=== PATIENT | female | born 1995 | race African-American/Black ===

== ENCOUNTER 2017-06-24 04:31 | Inpatient (IN) | payer OTHER ==
[2017-06-24] VITALS (23 sets, daily range): BP systolic 101–126; BP diastolic 64–112; PULSE 82–138; RESP 16–20; TEMP 98.9
[2017-06-24] MEDS ORDERED: OXYTOCIN 30 UNITS-500ML PREMIX 500 ML IV ONE (05:15)
[2017-06-24] MEDS ORDERED: MINERAL OIL 10 ML VIAL TOPICAL PRN (05:15)
[2017-06-24] MEDS ORDERED: LACTATED RINGER'S 1000 ML INJ 1,000 ML IV SCH (05:15)
[2017-06-24] MEDS ORDERED: LIDOCAINE HCL 1% 50 ML VIAL INFIL PRN (05:15)
[2017-06-24] MEDS ORDERED: PENICILLIN G POTASSIUM INJ 5,000,000 UNITS in SODIUM CHLORIDE 0.9% INJ 100 ML IV ONE (05:15)
[2017-06-24] MEDS ORDERED: LACTATED RINGER'S 1000 ML INJ 1,000 ML IV PRN (05:15)
[2017-06-24] MEDS ORDERED: LIDOCAINE HCL 1% 50 ML VIAL I-DERMAL PRN (05:15)
[2017-06-24] MEDS ORDERED: CITRIC ACID-SODIUM CITRATE LIQ 30 ML UDC PO SCH (05:15)
[2017-06-24] MEDS ORDERED: SODIUM CHLORID 0.9% 500 ML INJ 500 ML IV PRN (05:15)
--- NOTE | 2017-06-24 05:21 | HHI.HP ---
HPI Chief Complaint Contractions Date Seen: Jun 24, 2017 Time Seen: 05:05 Travel History International Travel<30 Days: No Contact w/Intl Traveler<30Days: No Known Affected Area: No History of Present Illness HPI Patient is 22-year-old black female at 39 weeks just complaining of contractions that are regular and painful. [facility] heart rate tracing is reactive she is césar on the monitor. Weeks Gestation: 39 Para: 0 : 1 Last Menstrual Period: Jun 24, 2017 History Social History Alcohol Use: No Tobacco Use: No Substance Abuse: No Allergies-Medications (Allergen,Severity, Reaction): Coded Allergies: No Known Allergies (Verified Adverse Reaction, Unknown, 06/23/17) Home Meds No Active Prescriptions or Reported Meds Review of Systems General / Constitutional: No: Fever, Weight Gain, Chills, Other Eyes: No: Diploplia, Blurred Vision, Visual changes, Pain, Photophobia HENT: No: Headaches, Vertigo, Lightheadedness Cardiovascular: No: Irregular Rhythm, Chest Pain or Discomfort, Palpitations, Tachycardia, Syncope, Varicosities, Edema, Cyanosis Respiratory: No: Cough, Short of Breath, Other Gastrointestinal: Abdominal Pain, No: Nausea, Vomiting, Diarrhea Genitourinary: No: Decreased Urinary Output, Oliguria Musculoskeletal: No: Limited ROM, Weakness, Cramping, Edema, Pain Skin: No Rash, No Itching, No Dryness, No Lumps, No Change in Pigmentation, No Change in Nails, No Alopecia, No Lesions Neurologic: No: Weakness, Dizziness, Syncope, Focal Abnormalities, Coordination Problem, Headache, Slurred Speech, Seizures Psychiatric: No: Depression, Suicidal Ideations, Homicidal Ideation Endocrine: No: Heat Intolerance, Cold Intolerance, Polydipsia, Polyuria, Other Physical Exam Narrative GENERAL: Well-nourished, well-developed patient. SKIN: Warm and dry. HEAD: Normocephalic and atraumatic. EYES: No scleral icterus. No injection or drainage. ENT: No nasal drainage noted. Mucous membranes pink. Airway patent. NECK: Supple, trachea midline. No JVD. CARDIOVASCULAR: Regular rate and rhythm without murmurs, gallops, or rubs. RESPIRATORY: Breath sounds equal bilaterally. No accessory muscle use. BREASTS: Bilateral exam showed no masses , no retractions, no nipple discharge. ABDOMEN/GI: Abdomen soft, non-tender, bowel sounds present, no rebound, no guarding Gravid to [39-] weeks size Fundal Height: [39-] GENITOURINARY: External Genitalia: intact and normal in appearance BUS glands: [-] Cervix: [-] Dilatation: [4-] Effacement: [90-] Station: [+1 Presentation: [vtx-] Membranes: [intact ] Uterine Contractions: [-reg] FHT's: Category: [1-] Baseline: [-133] Reactive: [-yes] Variability: [mod-] Decels: [0-] EXTREMITIES: No cyanosis or edema. BACK: Nontender without obvious deformity. No CVA tenderness. NEUROLOGICAL: Awake and alert. Motor and sensory grossly within normal limits. Five out of 5 muscle strength in all muscle groups. Normal speech. Caprini VTE Risk Assessment Caprini VTE Risk Assessment: No/Low Risk (score <= 1) Caprini Risk Assessment Model Point Value = 1 Point Value = 2 Point Value = 3 Point Value = 5 Age 41-60 Minor surgery BMI > 25 kg/m2 Swollen legs Varicose veins or History of unexplained or recurrent spontaneous Oral contraceptives or hormone replacement Sepsis (< 1 month) Serious lung disease, including pneumonia (< 1 month) Abnormal pulmonary function Acute myocardial infarction Congestive heart failure (< 1 month) History of inflammatory bowel disease Medical patient at bed rest Age 61-74 Arthroscopic surgery Major open surgery (> 45 min) Laparoscopic surgery (> 45 min) Malignancy Confined to bed (> 72 hours) Immobilizing plaster cast Central venous access Age >= 75 History of VTE Family history of VTE Factor V Leiden Prothrombin [id number] Lupus anticoagulant Anticardiolipin antibodies Elevated serum homocysteine Heparin-induced thrombocytopenia Other congenital or acquired thrombophilia Stroke (< 1 month) Elective arthroplasty Hip, pelvis, or leg fracture Acute spinal cord injury (< 1 month) Prophylaxis Regimen Total Risk Factor Score Risk Level Prophylaxis Regimen 0-1 Low Early ambulation 2 Moderate Order ONE of the following: *Sequential Compression Device (SCD) *Heparin 5000 units SQ BID 3-4 Higher Order ONE of the following medications: *Heparin 5000 units SQ TID *Enoxaparin/Lovenox 40 mg SQ daily (WT < 150 kg, CrCl > 30 mL/min) *Enoxaparin/Lovenox 30 mg SQ daily (WT < 150 kg, CrCl > 10-29 mL/min) *Enoxaparin/Lovenox 30 mg SQ BID (WT < 150 kg, CrCl > 30 mL/min) AND/OR *Sequential Compression Device (SCD) 5 or more Highest Order ONE of the following medications: *Heparin 5000 units SQ TID (Preferred with Epidurals) *Enoxaparin/Lovenox 40 mg SQ daily (WT < 150 kg, CrCl > 30 mL/min) *Enoxaparin/Lovenox 30 mg SQ daily (WT < 150 kg, CrCl > 10-29 mL/min) *Enoxaparin/Lovenox 30 mg SQ BID (WT < 150 kg, CrCl > 30 mL/min) AND *Sequential Compression Device (SCD) Data Data Orders Orders Ob (2e) Additional Admit Info (06/24/17 05:14) Admit To Inpatient (06/24/17 ) Vital Signs (Adult) .Per protocol (06/24/17 05:15) Heart (06/24/17 05:15) Amnioinfusion (06/24/17 05:15) Urinary Catheter Management .ONCE (06/24/17 05:15) Diet Liquid (06/24/17 Breakfast) Lactated Ringer's 1000 Ml Inj (Lr 1000 M (06/24/17 05:15) Lactated Ringer's 1000 Ml Inj (Lr 1000 M (06/24/17 05:15) Sodium Chlorid 0.9% 500 Ml Inj (Ns 500 M (06/24/17 05:15) Sodium Chlor 0.9% 1000 Ml Inj (Ns 1000 M (06/24/17 05:35) Lidocaine 1% Inj (50 Ml) (Xylocaine 1% I (06/24/17 05:15) Citric Acid-Sodium Citrate Liq (Bicitra (06/24/17 05:15) Fentanyl Inj (Fentanyl Inj) (06/24/17 05:15) Fentanyl Inj (Fentanyl Inj) (06/24/17 05:15) Penicillin G Potassium Inj (Pfizerpen-G (06/24/17 05:15) Penicillin G Potassium Inj (Pfizerpen-G (06/24/17 09:15) Complete Blood Count With Diff (06/24/17 05:15) Hold Clot (06/24/17 05:15) Abo/Rh Blood Type (06/24/17 05:15) Urinalysis - C+S If Indicated (06/24/17 05:15) Drug Screen, Random Urine (06/24/17 05:15) Type And Screen (06/24/17 05:15) Resp Oxygen Non Rebreathe Mask (06/24/17 ) ^ Epidural / Intrathecal Infus (06/24/17 05:15) Oxytocin 30 Units-500ml Premix (Pitocin (06/24/17 05:15) Lidocaine 1% Inj (50 Ml) (Xylocaine 1% I (06/24/17 05:15) Light Mineral Oil (Muri-Lube Oil) (06/24/17 05:15) Group B Strep: Positive Assessment/Plan Assessment and Plan A 22-year-old black female at 39 weeks who presents in active labor. Cervix is 4 cm/80%/+1 station vertex. She has no bleeding or leakage of fluid. Heart rate tracing is reactive and she is césar on the monitor. Plan--management/augmentation and anticipate vaginal delivery Khalif Rojas II, MD Jun 24, 2017 05:21
[2017-06-24] MEDS ORDERED: SODIUM CHLOR 0.9% 1000 ML INJ 1,000 ML IV PRN (05:35)
[2017-06-24 05:47] LABS: AUTOMATED NEUTROPHIL # 7.8 TH/MM3 (1.8-7.7); BASOPHIL # 0.1 TH/MM3 (0-0.2); BASOPHIL % 0.6 % (0.0-2.0); EOSINOPHIL # 0.1 TH/MM3 (0-0.4); EOSINOPHIL % 0.5 % (0.0-4.0); HEMATOCRIT 33.6 % (35.0-46.0); HEMO FLAGS DIFF FINAL; LYMPH % 23.4 % (9.0-44.0); LYMPHOCYTE # 2.7 TH/MM3 (1.0-4.8); MEAN CELL VOLUME 73.8 FL (80.0-100.0); MEAN CORPUSCULAR HGB CONC 31.1 % (32.0-36.0); NEUT % 68.5 % (16.0-70.0); PLATELET COUNT 196 TH/MM3 (150-450); RED BLOOD COUNT 4.56 MIL/MM3 (4.00-5.30); RED CELL DISTRIBUTION WIDTH 15.6 % (11.6-17.2); WHITE BLOOD COUNT 11.4 TH/MM3 (4.0-11.0)
[2017-06-24 06:20] LABS: BACTERIA, URINE RARE /hpf; BLOOD, URINE TRACE (NEG); COMMENT (UR) CULT NOT INDICATED; CULTURE IF INDICATED CULT NOT INDICATED; GLUCOSE,URINE NEG (NEG); KETONE, URINE NEG (NEG); MUCUS URINE FEW /lpf (OCC); NITRITE,URINE NEG (NEG); PH, URINE 7.5 (5.0-8.5); SQUAMOUS EPITHELIAL CELL URINE <1 /hpf (0-5); URINE COLOR YELLOW (YELLW/STRAW)
[2017-06-24] MEDS ORDERED: fentaNYL 2MCG-BUPIV 0.125% INJ 100 ML ONE (06:57)
--- NOTE | 2017-06-24 08:34 | PD.LABORPN ---
Subjective Subjective 22YO at 39/4 wks. AROM 06/24/17 @ 08:20AM, cervix at 5-6cm/90%/0/vtx, Cat 1 tracing, reactive, moderate BL 140, no decels Objective Vital Signs Vital Signs Date Time Temp Pulse Resp B/P (MAP) Pulse Ox O2 Delivery O2 Flow Rate FiO2 06/24/17 08:00 98 20 114/69 (84) 06/24/17 07:50 138 123/112 (116) 06/24/17 07:50 132 06/24/17 07:45 106 06/24/17 07:45 113 123/90 (101) 06/24/17 07:40 96 112/73 (86) 06/24/17 07:40 113 06/24/17 07:35 102 121/76 (91) 06/24/17 07:35 103 06/24/17 07:30 105 123/75 (91) 06/24/17 07:30 106 06/24/17 07:20 110 06/24/17 07:20 108 115/79 (91) 06/24/17 07:15 103 06/24/17 07:15 111 125/84 (98) 06/24/17 07:10 107 115/82 (93) 06/24/17 07:05 111 06/24/17 07:05 116 113/76 (88) 06/24/17 07:04 122 119/89 (99) 06/24/17 05:51 107 118/103 (108) Objective Pelvic Exam: Cervix: posterior Dilatation: 5-6cm Effacement: 90% Station: 0 Presentation: vtx Membranes: AROM at 08:20AM on 06/24/17 Uterine Contractions: irregular 2-5 minutes FHT's: Category: Cat1 Baseline: 140 Reactive: yes Variability: moderate Decels: no decels Weeks Gestation: 39 Pt started active labor?: Yes Active labor start date: Jun 24, 2017 Active labor start time: 08:20 Medical induction of labor?: No Artificial rupture of membrane: Yes Artificial ROM date: Jun 24, 2017 Artifical ROM time: 08:20 Assessment/Plan Assessment and Plan 22YO at 39/4 weeks, AROM 08:20AM with meconium stained fluid, 5-6cm/90%/0/ vtx, Cat 1 tracing, reactive, moderate, BL 140, no decels. PLAN: - monitoring of active labor -Epidural in place GBS+ treated with Pen G x1 at 05:15 on 06/24/17 Pt seen and discussed with Dr oBb Brady,Charles Almanzar MD R1 Jun 24, 2017 08:34
[2017-06-24] MEDS ORDERED: PENICILLIN G POTASSIUM INJ 2,500,000 UNITS in SODIUM CHLORIDE 0.9% INJ 100 ML IV SCH (09:15)
--- NOTE | 2017-06-24 10:42 | PD.OB.DELI ---
Weeks gestation: 39 Pt started active labor?: Yes Active labor start date: Jun 24, 2017 Active labor start time: 08:20 Medical induction of labor?: No Artificial rupture of membrane: Yes Artificial ROM date: Jun 24, 2017 Artifical ROM time: 08:20 Anesthesia: Epidural Episiotomy: None Vaginal Delivery: Normal, Spontaneous Presentation: Occiput anterior Nuchal Cord: None Delayed cord clamping (45 sec): Yes Infant: Female Delivery date: Jun 24, 2017 Delivery time: 10:13 One Minute : 9 Five Minute : 9 Weight: [id number] Placenta: Spontaneous delivery Laceration: Perineal laceration, 2 deg Repair: Vicryl running Estimated blood loss: 300 Additional Information Delivered by Dr. Agustin Assisted Dr. Brady PGY1 Treatment Plant Mechanic Dr. Yesika Agustin,Melani Frost MD Jun 24, 2017 10:42
[2017-06-24] MEDS ORDERED: ACETAMINOPHEN 325 MG TAB PO PRN (10:45)
[2017-06-24] MEDS ORDERED: ONDANSETRON ODT 4 MG TAB PO PRN (10:45)
[2017-06-24] MEDS ORDERED: BENZOCAINE 20% TOPICAL SPRAY 60 ML CAN TOPICAL PRN (10:45)
[2017-06-24] MEDS ORDERED: SODIUM CHLORIDE 0.9% FLUSH 10 ML FLUSH IV FLUSH PRN (10:45)
[2017-06-24] MEDS ORDERED: WITCH HAZEL 50%/GLYCERIN 12.5% 40 PAD JAR TOPICAL PRN (10:45)
[2017-06-24] MEDS ORDERED: DOCUSATE SODIUM 50 MG/SENNA 8.6 MG TAB PO PRN (10:45)
[2017-06-24] MEDS ORDERED: ALUMINUM/MAGNESIUM/SIMETH 30 ML CUP PO PRN (10:45)
[2017-06-24] MEDS ORDERED: OXYTOCIN 30 UNITS-500ML PREMIX 500 ML IV SCH (11:30)
[2017-06-24] MEDS ORDERED: ePHEDrine/NS 25 MG/5 ML SYR IV PUSH PRN (12:30)
[2017-06-24] MEDS ORDERED: DO NOT ADMINISTER ANTICOAGULANTS PRN (12:30)
[2017-06-24] MEDS ORDERED: NO SYSTEM NARCOTICS PRN (12:30)
[2017-06-24] MEDS ORDERED: fentaNYL 2MCG-BUPIV 0.125% 100 ML EPIDURAL SCH (12:30)
[2017-06-24] MEDS ORDERED: DIPHTH/TETANUS/ACEL PERTUSSIS (BOOSTER) 0.5 ML VIAL/PFS IM ONE (16:00)
[2017-06-24] MEDS ORDERED: MEASLES, MUMPS, RUBELLA VACCINE 0.5 ML VIAL SQ ONE (16:00)
[2017-06-24] MEDS ORDERED: ZOLPIDEM TARTRATE 5 MG TAB PO PRN (21:00)
[2017-06-24] MEDS: IBUPROFEN 800 MG TAB PO PRN (21:35)
[2017-06-25] VITALS: BP 111/68; PULSE 83; RESP 18; TEMP 98.3
[2017-06-25 08:00] VITALS: BP 110/73; PULSE 86; RESP 16; TEMP 98.1; O2SAT 99
--- NOTE | 2017-06-25 08:24 | HHI.OB ---
Subjective Post Day: 1 Remarks Ms Perrin had no acute events overnight. Pain is controlled on ibuprofen, ambulating w/o dizziness, tolerating PO, voiding and stooling. Lochia is normal. Pt is trying to breastfeed. No CP, SOB, N/V/D, or DVT pain. Objective Vitals/I&O Vital Signs Date Time Temp Pulse Resp B/P (MAP) Pulse Ox O2 Delivery O2 Flow Rate FiO2 06/25/17 00:00 98.3 83 18 111/68 (82) 06/24/17 19:00 98.9 92 16 06/24/17 19:00 125/87 (100) 06/24/17 12:15 82 123/80 (94) 06/24/17 11:37 20 06/24/17 11:30 107 123/85 (98) 06/24/17 11:15 20 06/24/17 11:15 95 115/82 (93) 06/24/17 11:02 106 114/83 (93) 06/24/17 11:00 94 117/81 (93) 06/24/17 11:00 20 06/24/17 10:45 111 20 115/84 (94) 06/24/17 10:39 114 126/81 (96) 06/24/17 09:30 20 06/24/17 09:15 111 101/64 (76) Objective Remarks GENERAL: Well-nourished, well-developed patient lying in bed in NAD. CARDIOVASCULAR: Regular rate and rhythm without murmur, gallop, or rub. RESPIRATORY: Breath sounds equal bilaterally. No accessory muscle use. ABDOMEN/GI: Abdomen soft, non-tender. Appropriately distended. Fundus: Firm, non-tender below umbilicus. GENITOURINARY: Light to moderate bleeding. EXTREMITIES: No cyanosis or edema, non-tender, without signs of DVT. Medications and IVs Current Medications Medications (Trade) Dose Ordered Sig/Scott Route Start Time Stop Time Status Last Admin (NS Flush) 2 ml BID IV FLUSH 06/24/17 21:00 (NS Flush) 2 ml UNSCH PRN IV FLUSH 06/24/17 10:45 (Tylenol) 650 mg Q4H PRN PO 06/24/17 10:45 06/24/17 21:35 (Motrin) 800 mg Q8H PRN PO 06/24/17 10:45 06/24/17 21:35 (Americaine 20% Top Spr) 1 spray Q4H PRN TOPICAL 06/24/17 10:45 06/24/17 16:41 (Tucks Pads) 1 applic QID PRN TOPICAL 06/24/17 10:45 06/24/17 16:41 (Leanne-Colace) 2 tab Q12H PRN PO 06/24/17 10:45 06/24/17 21:35 (Ambien) 5 mg HS PRN PO 06/24/17 21:00 (Mag-Al Plus Susp Liq) 15 ml Q8H PRN PO 06/24/17 10:45 (Zofran Odt) 4 mg Q6H PRN PO 06/24/17 10:45 Miscellaneous Information No systemic narcotics to be given except... UNSCH PRN .XX 06/24/17 12:30 06/25/17 12:29 Miscellaneous Information DO NOT ADMINISTER ANY ANTICOAGUL... UNSCH PRN .XX 06/24/17 12:30 06/25/17 12:29 Fentanyl/ Bupivacaine HCl 100 ml @ 0 mls/hr TITRATE EPIDURAL 06/24/17 12:30 (ePHEDrine/NS 25 MG/5 ML SYR) 10 mg UNSCH PRN IV PUSH 06/24/17 12:30 06/25/17 12:29 Assessment/Plan Assessment and Plan 22YO delivered via at 39/4 weeks following GBS treatment with Penicillin G. Pt pain is controlled, ambulating, taking PO, voiding and a BM this morning. Lochia is equal to a normal period. AFVSS. No CP, SOB, N/V/D, or DVT pain. Physical exam benign. PLAN: -Routine care -Pain control with PRN ibuprofen and/or Percocet -Advised to ambulate OOB; shower but no baths for next 2-3 weeks -Pelvic rest x6 weeks including no sexual activity -Pt will see BOAT CARPENTER for f/u in 6wks -Pt considering control options at this time Anticipate discharge tomorrow. Pt discussed with Daria Napoles and Charles Bowie MD R1 Jun 25, 2017 08:24
[2017-06-25] MEDS ORDERED: TRICCAP PO (09:48)
--- NOTE | 2017-06-25 09:50 | HHI.DCPOC ---
Discharge Care Plan Report Symptoms to Your Doctor -Temperature above 100.5 degrees -Redness, of incision or excessive or foul smelling drainage -Unusual pain or calf pain -Increased vaginal bleeding -Painful or difficulty urinating -Feelings of extreme sadness or anxiety after 2 weeks Goals to Promote Your Health * To prevent worsening of your condition and complications, please take medications as prescribed. Please place nothing in your vagina for 6 weeks. This includes no sexual intercourse for 6 weeks. You may take showers for the next 2-3 weeks but no baths. * To maintain your health at the optimal level, please follow up with your OB/ CRAFT SUPERINTENDENT in 6 weeks. Directions to Meet Your Goals Take your medications as prescribed Follow your dietary instruction Follow activity as directed Ensure plenty of rest for recovery Drink fluids for hydration Keep your appointments as scheduled Take your immunizations and boosters as scheduled If your symptoms worsen call your PCP, if no PCP go to Urgent Care Center or Emergency Room Smoking is Dangerous to Your Health. Avoid second hand smoke Call the 24-hour crisis hotline for domestic abuse at Charles Brady MD R1 Jun 25, 2017 09:50
[2017-06-25] MEDS: SODIUM CHLORIDE 0.9% FLUSH 10 ML FLUSH IV FLUSH SCH ×2 (10:00→21:00)
[2017-06-25] MEDS: IBUPROFEN 800 MG TAB PO PRN (10:22)
[2017-06-26 08:00] VITALS: BP 115/76; PULSE 94; RESP 16; TEMP 98.2
[2017-06-26] MEDS ORDERED: IBUP1TAB7 PO (08:45)
--- NOTE | 2017-06-26 08:48 | HHI.OB ---
Subjective Post Day: 2 Remarks Patient is a 22-year-old delivered at 39 weeks and 4 days. Patient is day 2 after . Patient's pain is well-controlled. Patient reports eating and drinking without any nausea or vomiting. Patient reports minimal bleeding. Patient has passed gas and bowel movements. Patient is walking without lower extremity pain or shortness of breath. Patient reports desire for contraception through her outpatient provider and both formula- and breast- feeding. (Adalberto Huggins MD R2) Remarks Patient seen and evaluated with resident under direct supervision, agree with assessment and plan. (Josué Russ MD) Objective Vitals/I&O Vital Signs Date Time Temp Pulse Resp B/P (MAP) Pulse Ox O2 Delivery O2 Flow Rate FiO2 06/26/17 08:00 98.2 16 06/26/17 08:00 94 115/76 (89) Objective Remarks GENERAL: Well-nourished, well-developed patient lying in bed in NAD. CARDIOVASCULAR: Regular rate and rhythm without murmur, gallop, or rub. RESPIRATORY: Breath sounds equal bilaterally. No accessory muscle use. ABDOMEN/GI: Abdomen soft, non-tender. Appropriately distended. Fundus: Firm, non-tender below umbilicus. GENITOURINARY: Light to moderate bleeding. EXTREMITIES: No cyanosis or edema, non-tender, without signs of DVT. Medications and IVs Current Medications Medications (Trade) Dose Ordered Sig/Scott Route Start Time Stop Time Status Last Admin (NS Flush) 2 ml BID IV FLUSH 06/24/17 21:00 (NS Flush) 2 ml UNSCH PRN IV FLUSH 06/24/17 10:45 (Tylenol) 650 mg Q4H PRN PO 06/24/17 10:45 06/24/17 21:35 (Motrin) 800 mg Q8H PRN PO 06/24/17 10:45 06/25/17 10:22 (Americaine 20% Top Spr) 1 spray Q4H PRN TOPICAL 06/24/17 10:45 06/24/17 16:41 (Tucks Pads) 1 applic QID PRN TOPICAL 06/24/17 10:45 06/24/17 16:41 (Leanne-Colace) 2 tab Q12H PRN PO 06/24/17 10:45 06/24/17 21:35 (Ambien) 5 mg HS PRN PO 06/24/17 21:00 (Mag-Al Plus Susp Liq) 15 ml Q8H PRN PO 06/24/17 10:45 (Zofran Odt) 4 mg Q6H PRN PO 06/24/17 10:45 Fentanyl/ Bupivacaine HCl 100 ml @ 0 mls/hr TITRATE EPIDURAL 06/24/17 12:30 (Adalberto Huggins MD R2) Assessment/Plan Problem List: (1) Normal vaginal delivery of first ICD Codes: O80 - Encounter for full-term uncomplicated delivery Assessment and Plan 22YO delivered via at 39/4 weeks following GBS treatment with Penicillin G. Pt pain is controlled, ambulating, taking PO, voiding and stooling this morning. Lochia is equal to a normal period. AFVSS. No CP, SOB, N/ V/D, or DVT pain. Physical exam benign. PLAN: -Routine care -Pain control with PRN ibuprofen and/or Percocet -Advised to ambulate OOB; shower but no baths for next 2-3 weeks -Pelvic rest x6 weeks including no sexual activity -Pt will see UI DEVELOPER DESIGNER for f/u in 6wks -Pt considering control options at this time; she will arrange to her outpatient provider Anticipate discharge today Pt discussed with Dr. Russ Discharge Planning Anticipate discharge today. (Adalberto Huggins MD R2) Adalberto Huggins MD R2 Jun 26, 2017 08:48 Josué Russ MD Jun 28, 2017 09:09
== END 2017-06-26 15:39 | disposition home or self-care (01) | DRG 775 ==
LOC: HOBED 04:31 → H2EA 05:15 → H1EA 13:20
PROVIDERS: ADMIT Obstetrics & Gynecology Maternal & Fetal Medicine; ATTEND Obstetrics & Gynecology Maternal & Fetal Medicine
PROC: 10E0XZZ Delivery of Products of Conception, External Approach (ICD-10-PCS; principal; 2017-06-24)
PROC: 0KQM0ZZ Repair Perineum Muscle, Open Approach (ICD-10-PCS; 2017-06-24)
PROC: 10907ZC Drainage of Amniotic Fluid, Therapeutic from Products of Conception, Via Natural or Artificial Opening (ICD-10-PCS; 2017-06-24)
DX: O77.0 Labor and delivery complicated by meconium in amniotic fluid (principal); O99.824 Streptococcus B carrier state complicating childbirth; O70.1 Second degree perineal laceration during delivery; Z37.0 Single live birth; Z3A.39 39 weeks gestation of pregnancy
CPT/HCPCS: 80307; 81001; 85025; 86850; 86900; 86901